=== PATIENT | male | born 1965 | race African-American/Black ===

== ENCOUNTER 2023-04-30 10:16 | Emergency (ER) | payer OTHER ==
[~2023-04-30] VITALS: Ht 185.4 cm; Wt 73.9 kg
[2023-04-30 10:16] VITALS: BP_SYST 147; PULSE 89; RESP 18; TEMP 97.8; O2SAT 97
[2023-04-30] MEDS ORDERED: HYDROcodone/ACETAMIN 5-325 MG TAB (NORCO/ VICODIN) PO ONE (10:45)
[2023-04-30 11:11] LABS: BASOPHILS # (AUTO) 0.1 K/uL (0.0-0.2); BASOPHILS % (AUTO) 1.1 % (0.0-2.0); EOSINOPHILS # (AUTO) 0.3 K/uL (0.0-0.4); EOSINOPHILS % (AUTO) 2.9 % (0.0-4.0); HEMATOCRIT 35.5 % (36-54); HEMOGLOBIN 11.7 g/dL (14.0-18.0); LYMPHOCYTES # (AUTO) 2.6 K/uL (1.0-5.5); LYMPHOCYTES % (AUTO) 28.6 % (20.5-51.5); MEAN CORPUSCULAR HEMOGLOBIN 31 pg (27-31); MEAN CORPUSCULAR HGB CONC 33 % (32-36); MEAN CORPUSCULAR VOLUME 95 fL (79.0-98.0); MONOCYTES # (AUTO) 0.7 K/uL (0.0-1.0); MONOCYTES % (AUTO) 7.4 % (1.7-9.3); NEUTROPHILS # (AUTO) 5.4 K/uL (1.8-7.7); PLATELET COUNT (AUTO) 266 K/uL (130-430); RED BLOOD CELL COUNT(AUTO) 3.73 MIL/uL (4.2-6.2); RED CELL DISTRIBUTION WIDTH 13.2 % (9.0-15.0)
[2023-04-30 11:16] LABS: INR 0.9 (0.80-1.20); PROTHROMBIN TIME 9.8 SECS (9.5-12.5)
[2023-04-30 11:50] LABS: CALCIUM 9.9 mg/dL (8.4-11.0); CREATININE 1.85 mg/dL (0.55-1.30); POTASSIUM 3.9 mmol/L (3.5-5.1)
[2023-04-30 12:08] LABS: ERYTHROCYTE SEDIMENTATION RATE 60 MM/HR (0-15)
[2023-04-30] MEDS ORDERED: LIDOCAINE 1%, 20 ML MDV 20 ML ONE (12:27)
[2023-04-30] MEDS ORDERED: LIDOCAINE 1% 10 MG/ML, 20 ML MDV INJ ONE (12:30)
[2023-04-30] MEDS ORDERED: cefTRIAXone 1 GM in D5W 50 ML IV ONE (15:30)
[2023-04-30] MEDS ORDERED: cefTRIAXone 1 GM VIAL ONE (15:47)
[2023-04-30] MEDS ORDERED: KETOROLAC TROMETHAMINE 30 MG VIAL IVP ONE (18:00)
[2023-04-30 20:45] LABS: BF APPEARANCE UNSPUN HAZY (CLEAR); BODY FLUID COLOR YELLOW (LT YELLOW); BODY FLUID SOURCE/ TYPE SYNOVIAL; SOURCE/TYPE ,BODY FLUID SYNOVIAL
[2023-04-30 20:46] LABS: APPEARANCE,SPUN,BODY FLUID CLEAR (CLEAR); BODY FLUID TOTAL VOLUME 3.5 mL; LYMPHOCYTES, BODY FLUID 83 %; MONOCYTES,BODY FLUID 8 %; NEUTROPHIL, BODY FLUID 9 %; RBC, BODY FLUID 1268 /uL; WBC, BODY FLUID 611 /uL
[2023-04-30 20:47] LABS: EOSINOPHIL, BODY FLUID 0 %
[2023-04-30] MEDS ORDERED: IBUP-1969 PO (21:07)
[2023-04-30 21:33] VITALS: BP_SYST 165; PULSE 88; RESP 18; TEMP 97.5; O2SAT 98
== END 2023-04-30 21:33 | disposition home or self-care (01) ==
LOC: SED 10:16
DX: D64.9 Anemia, unspecified (principal); M25.522 Pain in left elbow; E11.65 Type 2 diabetes mellitus with hyperglycemia; R73.9 Hyperglycemia, unspecified; I10 Essential (primary) hypertension; Z79.899 Other long term (current) drug therapy
CPT/HCPCS: 20606; 99285; 96365; 96375; 82947; 80048; 84157; 85025; 85610; 85651; 87040; 89051 ×2; 89060; 36415; 73080; 83605; 82397; J0696; J1885; J2001